=== PATIENT | female | born 1985 | race Caucasian/White ===

== ENCOUNTER → 2017-01-06 | Outpatient (CLI) | payer MEDICAID ==
[2016-10-02 07:09] VITALS: BP 130/65
--- NOTE | 2017-01-06 12:07 | US ---
Examination: Abdominal ultrasound. Clinical History: Right upper quadrant abdominal pain. Technique: Real-time grayscale ultrasound was used to evaluate the upper abdomen. Comparison: None available. Findings: The gallbladder is suboptimally distended with no cholelithiasis, gallbladder wall thickening or per icholecystic fluid noted. The common bile duct measures 4 mm in diameter and is within normal limits. No intrahepatic biliary ductal dilatation is noted. The liver is normal in echogenicity with no focal mass. The pancreas is obscured by bowel gas and is not adequately evaluated. The right kidney measures 10.5 cm in length and is normal in echogenicity with no focal mass, hydron ephrosis or nephrolithiasis noted. Impression: 1. Negative right upper quadrant abdominal ultrasound. Reported By:
== END ==
LOC: RAD 10:17
PROVIDERS: ATTEND Nurse Practitioner Family
DX: R10.11 Right upper quadrant pain (principal); K21.9 Gastro-esophageal reflux disease without esophagitis
CPT/HCPCS: 76705

== ENCOUNTER 2017-01-13 10:51 | Emergency (ER) | payer MEDICAID ==
[2017-01-13 11:03] VITALS: BP 119/83; BMI 28.9
[2017-01-13] MEDS ORDERED: DEMEROL INJ IM ONE (11:03)
--- NOTE | 2017-01-13 11:03 | DR.GENAD ---
HPI - PCP Primary Care Physician: peña - Complaint/Symptoms Chief Complaint Doctors Comments: Patient states that her left ankle is painful to movement. occured just a few minutes prior to arrival when a cabinet fell onto her ankle. Quaity shap, severe, exacerbated by weight bearing. 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 she is having left ankle pain. - Source History Provided: Patient - Mode of Arrival Mode of Arrival: EMS - Timing Onset of Chief Complaint: 01/13/17 PMH - PMH Past Medical History: Yes Past Medical History: Anxiety, Asthma, Depression Past Surgical History: Yes Surgical History: 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 - Family History History of Family Medical Conditions: No - Social History Does patient currently use any type of tobacco product: Yes Have you used tobacco products in the last 12 months: Yes Type of Tobacco Use: Cigarettes How many years tobacco product used: 20 Does any household member use tobacco: Yes Alcohol Use: None Do you use any recreational Drugs:: No Lives With: Family Lives Where: Home - infectious screening In the last 2 months have you had wt loss of >10#?: NO Have you had fever, night sweats or hemotysis?: No Have you traveled outside the country in the last 6 months?: No Isolation: Standard ROS - Review of Systems Constitutional: No Symptoms Reported Eyes: No Symptoms Reported ENTM: No Symptoms Reported Respiratoy: No Symptoms Reported Cardiovascular: No Symptoms Reported Gastrointestinal/Abdominal: No Symptoms Reported Genitourinary: No Symptoms Reported Neurological: No Symptoms Reported Musculoskeletal: Ankle (left ankle pain) Integumentary: No Symptoms Reported Hematologic/Lymphatic: No Symptoms Reported Endocrine: No Symptoms Reported Psychiatric: No Symptoms Reported All Other Systems: Reviewed and Negative PE - Vital Signs Vitals: Temperature 98.6 F Pulse Rate 86 Respiratory Rate 16 Blood Pressure [Right Arm] 130/65 Blood Pressure 119/83 O2 Sat by Pulse Oximetry 100 - General Limitations: No Limitations General Appearance: Alert, In No Apparent Distress - Head Head Exam: Normal Inspection, Atraumatic - Eyes Eye exam: Normal Appearance, PERRL, EOMI - ENT ENT Exam: Normal Exam External Ear Exam: Normal External Inspection TM/Canal Exam: Bilateral Normal Nose Exam: Normal Nose Exam Mouth Exam: Normal Inspection Throat Exam: Normal Inspection - Neck Neck Exam: Normal Inspection - Chest Chest Inspection: Normal Inspection - Respiratory Respiratory Exam: Normal Lung Sounds Bilat Respiratory Exam: Bilateral Clear to Auscultation - Cardiovascular Cardiovascular Exam: Regular Rate, Normal Rhythm - Abdominal Exam Abdominal Exam: Normal Inspection, Normal Bowel Sounds Abdominal Tenderness: negative: RUQ, RLQ, LUQ, LLQ, Epigastrium, Suprapubic, Diffuse, Mild, Moderate, Severe, Other - Extremities Extremities Exam: Tenderness (left ankle), Normal Capillary Refill, Edema ( slight) - Back Back Exam: Normal Inspection - Neurologic Neurological Exam: Alert, Oriented X3, CN II-XII Intact - Psychiatric Psychiatric Exam: Normal Affect, Normal Mood - Skin Skin Exam: Warm, Dry, Intact ROR - XRAY XRAY Interpreted by: Radiologist (ankle,foot: no acute abnormality) - Diagnosis Discharge Problem: Contusion of ankle or foot, left - Discharge Plan Condition: Stable - Follow ups/Referrals Follow ups/Referrals: DONG TIMMONS [Primary Care Provider] - 3 days - Instructions
[2017-01-13] MEDS ORDERED: DEMEROL INJ ONE (11:11)
--- NOTE | 2017-01-13 11:33 | RAD ---
HISTORY: Pain, filing cabinet fell on foot Study: Three views left foot Comparison: None Findings: Normal alignment. No acute fracture or dislocation. The soft tissues are unremarkable. IMPRESSION: 1. No acute osseous abnormality. Reported By:
--- NOTE | 2017-01-13 11:34 | RAD ---
HISTORY: Pain, filing cabinet fell on patient's left foot at work. Study: Three-view left ankle Comparison: No priors Findings: No acute cortical disruption or dislocation can be identified. The ankle mortise remains well align ed. No significant soft tissue swelling or injury can be seen. The visualized portions of the talu s and calcaneus are unremarkable. IMPRESSION: 1. Negative exam. Reported By:
== END 2017-01-13 12:17 | disposition home or self-care (01) ==
LOC: ER 10:51
PROC: 2W3MX1Z Immobilization of Left Lower Extremity using Splint (ICD-10-PCS; principal; 2017-01-13)
DX: S90.02XA Contusion of left ankle, initial encounter (principal); S90.32XA Contusion of left foot, initial encounter; X58.XXXA Exposure to other specified factors, initial encounter; Y92.9 Unspecified place or not applicable
CPT/HCPCS: 29540; 73610; 73630; 96372; 99282; J2175

== ENCOUNTER → 2017-02-11 | Outpatient (CLI) | payer MEDICAID ==
[2017-01-13 11:03] VITALS: BP 119/83
[2017-02-11 19:28] LABS: BASOPHILS % (AUTO) 0.6 % (0.2-1.0); EOSINOPHILS # (AUTO) 0.4 x10^3/uL (0.0-0.2); EOSINOPHILS % (AUTO) 5.2 % (0.9-2.9); HEMATOCRIT 38.3 % (36.0-47.0); HEMOGLOBIN 12.8 g/dL (12.0-16.0); LYMPHOCYTES # (AUTO) 1.8 X10^3/uL (1.3-2.9); LYMPHOCYTES % (AUTO) 24.2 % (21.0-51.0); MEAN CORPUSCULAR HEMOGLOBIN 28.7 pg (27.0-34.0); MEAN CORPUSCULAR HGB CONC 33.5 g/dL (33.0-35.0); MEAN CORPUSCULAR VOLUME 85.8 fL (80.0-100.0); MEAN PLATELET VOLUME 8.5 fL (7.4-11.0); MONOCYTES # (AUTO) 0.6 x10^3/uL (0.3-0.8); MONOCYTES % (AUTO) 7.6 % (0.0-13.0); NEUTROPHILS # (AUTO) 4.8 x10^3/uL (2.2-4.8); NEUTROPHILS % (AUTO) 62.4 % (42.0-75.0); PLATELET COUNT 247 X10^3/uL (150.0-450.0); RED BLOOD COUNT 4.46 X10^6/uL (3.5-5.4); RED CELL DISTRIBUTION WIDTH 13.4 % (11.6-16.5); RETICULOCYTE % 2.17 % (0.8-2.2); WHITE BLOOD COUNT 7.6 X10^3/uL (3.6-10.0)
== END | disposition home or self-care (01) ==
LOC: LAB 18:01
PROVIDERS: ATTEND Nurse Practitioner Family
DX: R53.83 Other fatigue (principal); D64.9 Anemia, unspecified; R42 Dizziness and giddiness; R31.9 Hematuria, unspecified; G44.52 New daily persistent headache (NDPH); R10.31 Right lower quadrant pain; R30.0 Dysuria
CPT/HCPCS: 36415; 82607; 82728; 82746; 84466; 85025; 85045; 87086

== ENCOUNTER 2017-04-01 10:36 | Day surgery (SDC) | payer MEDICAID ==
[2017-04-01] MEDS: D5 LR 1000 ML 1,000 ML IV ONE (11:07)
[2017-04-01] MEDS ORDERED: DIPRIVAN VIAL 20 ML ONE (11:46)
[2017-04-01 12:34] VITALS: BP 107/73
== END 2017-04-01 12:30 | disposition home or self-care (01) ==
LOC: SURG1 10:36
PROVIDERS: ATTEND Internal Medicine
PROC: 0DB38ZX Excision of Lower Esophagus, Via Natural or Artificial Opening Endoscopic, Diagnostic (ICD-10-PCS; principal; 2017-04-01 11:00)
PROC: 0DB68ZX Excision of Stomach, Via Natural or Artificial Opening Endoscopic, Diagnostic (ICD-10-PCS; principal; 2017-04-01 11:00)
PROC: 0DJ08ZZ Inspection of Upper Intestinal Tract, Via Natural or Artificial Opening Endoscopic (ICD-10-PCS; principal; 2017-04-01 11:00)
DX: R10.13 Epigastric pain (principal); K21.9 Gastro-esophageal reflux disease without esophagitis; K44.9 Diaphragmatic hernia without obstruction or gangrene; K20.8 Other esophagitis; K29.60 Other gastritis without bleeding; R11.0 Nausea; R10.31 Right lower quadrant pain; R10.11 Right upper quadrant pain
CPT/HCPCS: A4217; J3490; J7120

== ENCOUNTER 2017-06-18 02:18 | Emergency (ER) | payer MEDICAID ==
[2017-06-18 02:25] VITALS: BP 113/70; BMI 29.2
--- NOTE | 2017-06-18 02:42 | DR.GENAD ---
HPI - Complaint/Symptoms Chief Complaint Doctors Comments: Patient complains of left sided chest pain that radiates to the right side under her ribs for the past two weeks. States the pain is squeezing type of pain with the pain being 10 of 10. states she smokes pack day. Last menstrual period was two months ago. States she has an IUD but they could not feel the string for a while and she is unsure if she is . She denies cold, cough, fever, chills, dysuria or hematuria. 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 she is complaining of epigastric pain. She denies any recent trauma. Chief Complaint:: chest pain and abd pain Self Treatment fo Chief Complaint: pt states that she has chronic chest pain but tonight it has been getting worse. 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 negative: See HPI, Chills, Diaphoresis, Fever, Malaise, Weakness, Irritable, Fatigue, Loss of Appetite, Other Eyes: No Symptoms Reported. negative: See HPI, Eye Pain, Blurred Vision, Tearing, Discharge, Photophobia, Diplopia, Other ENTM: No Symptoms Reported Respiratoy: No Symptoms Reported. negative: See HPI, Productive Cough, Non- Productive Cough, Moist Cough, Dry Cough, Hacking Cough, Barking Cough, Brassy Cough, Orthopnea, Short of Breath, Stridor, Wheezing, Hemoptysis, Other Cardiovascular: No Symptoms Reported, Chest Pain. negative: See HPI, Edema, Palpitations, Syncope, Cyanosis, Skin Mottling, Other Gastrointestinal/Abdominal: No Symptoms Reported, Abdominal Pain. negative: See HPI, Constipation, Diarrhea, Nausea, Vomiting, Food Intolerance, Other Genitourinary: No Symptoms Reported. negative: See HPI, Discharge, Dysuria, Frequency, Hematuria, Pain, Bleeding, Other Neurological: No Symptoms Reported Musculoskeletal: No Symptoms Reported. negative: See HPI, Back Pain, Gout, Joint Pain, Joint Swelling, Muscle Pain, Muscle Stiffness, Neck Pain, Right, Left, Neck, Chest wall, Rib(s), Back, Shoulder, Arm, Elbow, Forearm, Wrist, Hand , Pelvis, Hip, Leg, Knee, Ankle, Foot, Other Integumentary: No Symptoms Reported Hematologic/Lymphatic: No Symptoms Reported Endocrine: No Symptoms Reported Psychiatric: No Symptoms Reported PE - Vital Signs Vitals: Temperature 98.7 F Pulse Rate 97 Respiratory Rate 18 Blood Pressure [Right Arm] 130/65 Blood Pressure 113/70 O2 Sat by Pulse Oximetry 100 - General Limitations: No Limitations General Appearance: Alert, In No Apparent Distress, Obtunded - Head Head Exam: Normal Inspection, Atraumatic, Normocephalic - Eyes Eye exam: Normal Appearance, PERRL, EOMI. negative: Scleral Icterus, Conjunctival Injection, Nystagmus, Miosis, Mydrasis, Periorbital Swelling, Periorbital Tenderness, Other - ENT ENT Exam: Normal Exam, Normal Oropharynx, Normal External Ear Exam, Mucous Membranes Moist, TM's Normal Bilaterally External Ear Exam: Normal External Inspection TM/Canal Exam: Bilateral Normal Nose Exam: Normal Nose Exam, Sinus Tenderness. negative: Nasal Deviation, Crepitus, Septal Hematoma, Laceration, Abrasion, Other Mouth Exam: Normal Inspection, Drooling. negative: Trismus, Lip Swelling, Tongue Elevation, Tongue Swelling, Laceration, Other Throat Exam: Normal Inspection, Tonsillar Erythema, Tonsillomegaly. negative: Tonsillar Exudate, R Peritonsillar Mass, L Peritonsillar Mass, Muffled Voice, Other - Neck Neck Exam: Normal Inspection, Full ROM, Trachea Midline - Chest Chest Inspection: Normal Inspection, Symmetric Chest Wall Rise. negative: Tenderness, Rash, Abscess, Other - Respiratory Respiratory Exam: Normal Lung Sounds Bilat Respiratory Exam: Bilateral Clear to Auscultation, Bilateral Decreased Breath Sounds - Cardiovascular Cardiovascular Exam: Regular Rate, Normal Rhythm, Normal Heart Sounds - Abdominal Exam Abdominal Exam: Normal Inspection, Normal Bowel Sounds, Soft, Tenderness ( epigastric tenderness) Abdominal Tenderness: Epigastrium, Moderate - Extremities Extremities Exam: Normal Inspection, Full ROM, Normal Capillary Refill. negative: Tenderness, Edema, Joint Swelling, Calf Tenderness, Other - Back Back Exam: Normal Inspection, Full ROM. negative: Tenderness, (R) CVA Tenderness, (L) CVA Tenderness, Muscle Spasm, Paraspinal Tenderness, Vertebral Tenderness, Rashes, (R) Sciatic Notch Tenderness, (L) Sciatic Notch Tendern, (R ) Straight Leg Raise, (L) Straight Leg Raise, Other - Neurologic Neurological Exam: Alert, Oriented X3, CN II-XII Intact, Normal Gait, Reflexes Normal - Psychiatric Psychiatric Exam: Normal Affect, Normal Mood. negative: Depressed, Agitated, Anxious, Flat Affect, Manic, Homicidal Ideation, Suicidal Ideation, Other - Skin Skin Exam: Warm, Dry, Intact, Normal Color ROR - Labs Reviewed Laboratory Results Reviewed?: Yes (all labs and x-ray results reviewed and discussed with patient) Result Diagrams: 06/18/17 02:40 06/18/17 02:40 Laboratory: WBC 12.0 X10^3/uL (3.6-10.0) H 06/18/17 02:40 RBC 4.40 X10^6/uL (3.5-5.4) 06/18/17 02:40 Hgb 12.6 g/dL (12.0-16.0) 06/18/17 02:40 Hct 36.0 % (36.0-47.0) 06/18/17 02:40 MCV 81.7 fL (80.0-100.0) 06/18/17 02:40 MCH 28.7 pg (27.0-34.0) 06/18/17 02:40 MCHC 35.2 g/dL (33.0-35.0) H 06/18/17 02:40 RDW 14.5 % (11.6-16.5) 06/18/17 02:40 Plt Count 251 X10^3/uL (150.0-450.0) 06/18/17 02:40 MPV 7.7 fL (7.4-11.0) 06/18/17 02:40 Neut % 59.6 % (42.0-75.0) 06/18/17 02:40 Lymph % 24.5 % (21.0-51.0) 06/18/17 02:40 [place] % 8.6 % (0.0-13.0) 06/18/17 02:40 Eos % 6.4 % (0.9-2.9) H 06/18/17 02:40 Baso % 0.9 % (0.2-1.0) 06/18/17 02:40 Neut # 7.1 x10^3/uL (2.2-4.8) H 06/18/17 02:40 Lymph # 2.9 X10^3/uL (1.3-2.9) 06/18/17 02:40 [place] # 1.0 x10^3/uL (0.3-0.8) H 06/18/17 02:40 Eos # 0.8 x10^3/uL (0.0-0.2) H 06/18/17 02:40 Baso # 0.1 X10^3/uL (0.0-0.1) 06/18/17 02:40 Absolute Nucleated RBC 0.1 /100WBC 06/18/17 02:40 INR Target Range - 06/18/17 02:40 INR 1.01 (0.8-1.3) 06/18/17 02:40 PTT 31.0 SECONDS (22.9-36.5) 06/18/17 02:40 PTT Comment - 06/18/17 02:40 Sodium 138 mmol/L (136-145) 06/18/17 02:40 Corrected Sodium TNP 06/18/17 02:40 Potassium 3.5 mmol/L (3.5-5.1) 06/18/17 02:40 Chloride 101 mmol/L (98-107) 06/18/17 02:40 Carbon Dioxide 28.3 mmol/L (21-32) 06/18/17 02:40 BUN 14 mg/dL (7-18) 06/18/17 02:40 Creatinine 0.93 mg/dL (0.55-1.02) 06/18/17 02:40 Est GFR (MDRD) Af Amer > 60 (>60) 06/18/17 02:40 Est GFR (MDRD) Non-Af > 60 (>60) 06/18/17 02:40 Glucose 104 mg/dL (65-99) H 06/18/17 02:40 Calcium 8.4 mg/dL (8.5-10.1) L 06/18/17 02:40 Corrected Calcium TNP 06/18/17 02:40 Magnesium 1.7 mg/dL (1.7-2.9) 06/18/17 02:40 Total Bilirubin 0.20 mg/dL (0.2-1.0) 06/18/17 02:40 AST 43 Units/L (15-37) H 06/18/17 02:40 ALT 74 Units/L (12-78) 06/18/17 02:40 Alkaline Phosphatase 99 Units/L (46-116) 06/18/17 02:40 Creatine Kinase 97 Units/L (26-192) 06/18/17 02:40 CK-MB (CK-2) < 1.0 ng/mL (0-4.0) 06/18/17 02:40 CK/CKMB % Calc 1.0 % (<4) 06/18/17 02:40 Troponin I < 0.02 ng/mL (0-1.5) 06/18/17 02:40 Total Protein 7.5 g/dL (6.4-8.2) 06/18/17 02:40 Albumin 3.6 g/dL (3.4-5.0) 06/18/17 02:40 Globulin 3.9 g/dL (2.5-4.5) 06/18/17 02:40 Albumin/Globulin Ratio 0.9 Ratio (1.1-2.1) L 06/18/17 02:40 Amylase 41 Units/L (25-115) 06/18/17 02:40 Lipase 164 Units/L (73-393) 06/18/17 02:40 HCG, Qual Cancelled 06/18/17 02:40 HCG, Quant < 1 mIU/mL (0-6) 06/18/17 02:40 H. pylori IgG Antibody Positive (NEGATIVE) A 06/18/17 02:40 - XRAY XRAY Interpreted by: Radiologist (CT abdomen: No acute process identified. IUD in place.) - EKG Rate: 88 [place]: Normal Rhythm: NSR Block: None Hypertrophy: None ST: Nonsp - Diagnosis Discharge Problem: Helicobacter positive gastritis, Amenorrhea Abdominal pain Qualifiers: Abdominal location: generalized Qualified Code(s): R10.84 - Generalized abdominal pain - Discharge Plan Disposition: HOME, SELF-CARE Condition: Stable Prescriptions: Bismuth Subsalicylate [Pepto-Bismol] 524 mg PO QID PRN #120 ml PRN Reason: Metronidazole [Flagyl Tab 250 mg] 250 mg PO TID #42 tab Ranitidine HCl [ZANTAC TAB 150 MG *] 150 mg PO BID #60 tab Tetracycline HCl 500 mg PO TID PRN #42 cap PRN Reason: - Follow ups/Referrals Follow ups/Referrals: DONG TIMMONS [Primary Care Provider] - 3 days - Instructions Instructions: Abdominal Pain, Adult, [id number], Helicobacter Pylori Antibodies Test, Duodenitis
[2017-06-18 02:53] LABS: BASOPHILS # (AUTO) 0.1 X10^3/uL (0.0-0.1); BASOPHILS % (AUTO) 0.9 % (0.2-1.0); EOSINOPHILS # (AUTO) 0.8 x10^3/uL (0.0-0.2); EOSINOPHILS % (AUTO) 6.4 % (0.9-2.9); HEMOGLOBIN 12.6 g/dL (12.0-16.0); LYMPHOCYTES # (AUTO) 2.9 X10^3/uL (1.3-2.9); LYMPHOCYTES % (AUTO) 24.5 % (21.0-51.0); MEAN CORPUSCULAR HEMOGLOBIN 28.7 pg (27.0-34.0); MEAN CORPUSCULAR HGB CONC 35.2 g/dL (33.0-35.0); MEAN CORPUSCULAR VOLUME 81.7 fL (80.0-100.0); MEAN PLATELET VOLUME 7.7 fL (7.4-11.0); MONOCYTES % (AUTO) 8.6 % (0.0-13.0); NEUTROPHILS # (AUTO) 7.1 x10^3/uL (2.2-4.8); NEUTROPHILS % (AUTO) 59.6 % (42.0-75.0); PLATELET COUNT 251 X10^3/uL (150.0-450.0); RED CELL DISTRIBUTION WIDTH 14.5 % (11.6-16.5)
[2017-06-18 03:10] LABS: BLOOD UREA NITROGEN 14 mg/dL (7-18); CALCIUM 8.4 mg/dL (8.5-10.1); CARBON DIOXIDE 28.3 mmol/L (21-32); CHLORIDE 101 mmol/L (98-107); CREATININE 0.93 mg/dL (0.55-1.02); SODIUM 138 mmol/L (136-145); TROPONIN I < 0.02 ng/mL (0-1.5); eGFR BLACK RACES > 60 (>60); eGFR NON BLACK RACES > 60 (>60)
[2017-06-18 03:12] LABS: ALANINE AMINOTRANSFERASE 74 Units/L (12-78); ALBUMIN 3.6 g/dL (3.4-5.0); ALKALINE PHOSPHATASE 99 Units/L (46-116); AMYLASE 41 Units/L (25-115); CREATINE KINASE 97 Units/L (26-192); CREATINE KINASE MB < 1.0 ng/mL (0-4.0); LIPASE 164 Units/L (73-393); MAGNESIUM 1.7 mg/dL (1.7-2.9); TOTAL PROTEIN 7.5 g/dL (6.4-8.2)
[2017-06-18 03:25] LABS: ASPARTATE AMINO TRANSFERASE 43 Units/L (15-37)
--- NOTE | 2017-06-18 04:37 | CT ---
CT abdomen and pelvis without contrast Indication: Abdominal pain and distention for 2 weeks. Comparison: None Technique: CT images of the abdomen and pelvis were obtained without contrast. Automatic exposure con trol was utilized. Findings: The lung bases are clear. No aggressive osseous lesions. Evaluation is limited by lack of contrast. Accounting for this, the liver, gallbladder, spleen, stoma ch, duodenum, pancreas, adrenals, and kidneys are unremarkable. No urinary stones or obstruction. No significant bowel thickening or dilatation. The appendix appears normal. The uterus and ovaries are n oted. Intrauterine device appears grossly normal in position. Tampon present within the vagina. Urina ry bladder and rectum are unremarkable. No significant free fluid or adenopathy. Impression: No acute process identified to explain patient's symptoms, within noncontrast limitations. Reported By:
[2017-06-18] MEDS ORDERED: PROTONIX TAB 40 MG PO ONE ×2 (04:49→05:00)
[2017-06-18] MEDS ORDERED: TYLENOL #3 TAB (W/CODEINE) PO STA (04:49)
[2017-06-18] MEDS ORDERED: TYLENOL #3 TAB (W/CODEINE) PO ONE (05:00)
== END 2017-06-18 05:05 | disposition home or self-care (01) ==
LOC: ER 02:18
DX: R10.84 Generalized abdominal pain (principal); B96.81 Helicobacter pylori [H. pylori] as the cause of diseases classified elsewhere; N91.2 Amenorrhea, unspecified
CPT/HCPCS: 36415; 74176; 80053; 82150; 82550; 82553; 83690; 83735; 84484; 84702; 85025; 85610; 85730; 86677; 93005; 93010; 99283

== ENCOUNTER 2017-07-03 21:51 | Emergency (ER) | payer MEDICAID ==
[2017-07-03 22:05] VITALS: BP 136/87; BMI 31.5
--- NOTE | 2017-07-03 22:10 | DR.GENAD ---
HPI - PCP Primary Care Physician: peña - HPI Comment HPI Comment: PATIENT DEVELOP SUBSTERNAL SHARP CHEST PAIN TONIGHT WHILE TAKING HER SCHEDULE ALBUTEROL NEB TREATMENT. PAIN WAS ASSOCIATED WITH SOB AND FATIGUE. PAIN ALMOST RESOLVE CURRENTLY. - Complaint/Symptoms Chief Complaint Doctors Comments: CHEST. 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 negative: Chills, Fever, Loss of Appetite Eyes: No Symptoms Reported. negative: Eye Pain, Discharge ENTM: No Symptoms Reported. negative: Ear Pain, Nose Discharge, Nose Congestion , Throat Pain Respiratoy: No Symptoms Reported, Non-Productive Cough, Short of Breath, Wheezing. negative: Productive Cough (TIGHTNESS) Cardiovascular: Chest Pain Gastrointestinal/Abdominal: No Symptoms Reported. negative: Abdominal Pain, Diarrhea, Nausea, Vomiting Genitourinary: No Symptoms Reported. negative: Dysuria, Frequency, Hematuria Neurological: No Symptoms Reported, Weakness. negative: Headache, Dizziness Musculoskeletal: Muscle Pain Integumentary: No Symptoms Reported Hematologic/Lymphatic: No Symptoms Reported Endocrine: No Symptoms Reported All Other Systems: Reviewed and Negative PE - Vital Signs Vitals: Temperature 986 F Pulse Rate 106 Respiratory Rate 18 Blood Pressure [Right Arm] 130/65 Blood Pressure 136/87 O2 Sat by Pulse Oximetry 97 - General Limitations: No Limitations General Appearance: Alert - Head Head Exam: Normal Inspection - Eyes Eye exam: Normal Appearance - ENT ENT Exam: Normal External Ear Exam External Ear Exam: Normal External Inspection TM/Canal Exam: Bilateral Normal Nose Exam: Normal Nose Exam Mouth Exam: Normal Inspection Throat Exam: Normal Inspection - Neck Neck Exam: Normal Inspection, Trachea Midline - Chest Chest Inspection: Symmetric Chest Wall Rise - Respiratory Respiratory Exam: Normal Lung Sounds Bilat Respiratory Exam: Bilateral Wheezing, Bilateral Rhonchi, Lower Wheezing, Lower Rhonchi - Cardiovascular Cardiovascular Exam: Regular Rate, Normal Rhythm, Normal Heart Sounds - Abdominal Exam Abdominal Exam: Normal Bowel Sounds, Soft. negative: Tenderness - Extremities Extremities Exam: Normal Inspection - Back Back Exam: Normal Inspection - Neurologic Neurological Exam: Alert, Oriented X3 - Psychiatric Psychiatric Exam: Normal Affect, Normal Mood - Skin Skin Exam: Normal Color MDM - Differential Diagnosis Differential Diagnosis: CHEST PAIN Course - Treatment Treatment: SEE ORDERS. CHEST PAIN SPONTANOUSLY RESOLVE IN ED. - Education/Counseling Education/Counseling: Patient, Family, Education Educated On: Treatment, Diagnosis, Needs for Follow Up ROR - Labs Reviewed Laboratory Results Reviewed?: Yes Result Diagrams: 07/03/17 22:36 07/03/17 22:36 Laboratory: WBC 8.4 X10^3/uL (3.6-10.0) 07/03/17 22:36 RBC 4.44 X10^6/uL (3.5-5.4) 07/03/17 22:36 Hgb 12.6 g/dL (12.0-16.0) 07/03/17 22:36 Hct 36.2 % (36.0-47.0) 07/03/17 22:36 MCV 81.4 fL (80.0-100.0) 07/03/17 22:36 MCH 28.3 pg (27.0-34.0) 07/03/17 22:36 MCHC 34.8 g/dL (33.0-35.0) 07/03/17 22:36 RDW 14.4 % (11.6-16.5) 07/03/17 22:36 Plt Count 174 X10^3/uL (150.0-450.0) 07/03/17 22:36 MPV 8.1 fL (7.4-11.0) 07/03/17 22:36 Neut % 63.5 % (42.0-75.0) 07/03/17 22:36 Lymph % 23.4 % (21.0-51.0) 07/03/17 22:36 [place] % 8.8 % (0.0-13.0) 07/03/17 22:36 Eos % 3.5 % (0.9-2.9) H 07/03/17 22:36 Baso % 0.8 % (0.2-1.0) 07/03/17 22:36 Neut # 5.3 x10^3/uL (2.2-4.8) H 07/03/17 22:36 Lymph # 2.0 X10^3/uL (1.3-2.9) 07/03/17 22:36 [place] # 0.7 x10^3/uL (0.3-0.8) 07/03/17 22:36 Eos # 0.3 x10^3/uL (0.0-0.2) H 07/03/17 22:36 Baso # 0.1 X10^3/uL (0.0-0.1) 07/03/17 22:36 Absolute Nucleated RBC 0.0 /100WBC 07/03/17 22:36 Sodium 143 mmol/L (136-145) 07/03/17 22:36 Corrected Sodium 143 mmol/L (136-145) 07/03/17 22:36 Potassium 3.9 mmol/L (3.5-5.1) 07/03/17 22:36 Chloride 105 mmol/L (98-107) 07/03/17 22:36 Carbon Dioxide 29.3 mmol/L (21-32) 07/03/17 22:36 BUN 12 mg/dL (7-18) 07/03/17 22:36 Creatinine 0.88 mg/dL (0.55-1.02) 07/03/17 22:36 Est GFR (MDRD) Af Amer > 60 (>60) 07/03/17 22:36 Est GFR (MDRD) Non-Af > 60 (>60) 07/03/17 22:36 Glucose 113 mg/dL (65-99) H 07/03/17 22:36 Calcium 8.9 mg/dL (8.5-10.1) 07/03/17 22:36 Corrected Calcium TNP 07/03/17 22:36 Total Bilirubin 0.30 mg/dL (0.2-1.0) 07/03/17 22:36 AST 30 Units/L (15-37) 07/03/17 22:36 ALT 53 Units/L (12-78) 07/03/17 22:36 Alkaline Phosphatase 92 Units/L (46-116) 07/03/17 22:36 Creatine Kinase 75 Units/L (26-192) 07/03/17 22:36 CK-MB (CK-2) < 1.0 ng/mL (0-4.0) 07/03/17 22:36 CK/CKMB % Calc 1.3 % (<4) 07/03/17 22:36 Troponin I < 0.02 ng/mL (0-1.5) 07/03/17 22:36 Total Protein 7.1 g/dL (6.4-8.2) 07/03/17 22:36 Albumin 3.4 g/dL (3.4-5.0) 07/03/17 22:36 Globulin 3.7 g/dL (2.5-4.5) 07/03/17 22:36 Albumin/Globulin Ratio 0.9 Ratio (1.1-2.1) L 07/03/17 22:36 - XRAY XRAY Interpreted by: Radiologist XRAY Findings: REPORT DISCUSS WITH PATIENT. - EKG Rhythm: NSR (EKG NOTED) - Diagnosis Discharge Problem: Chest pain Qualifiers: Chest pain type: intercostal pain Qualified Code(s): R07.82 - Intercostal pain - Discharge Plan Disposition: 01 HOME, SELF-CARE Condition: Stable - Follow ups/Referrals Follow ups/Referrals: DONG TIMMONS [Primary Care Provider] - 2 days - Instructions Instructions: Chest Pain Observation Additional Instructions: RETURN TO ED IF WORSE.
--- NOTE | 2017-07-03 22:48 | RAD ---
HISTORY: Pain Study: portable chest Comparison: 10/01/2016 Findings: The left ventricles mildly enlarged. The pulmonary vessels are normal. No consolidation or effusion i s seen. IMPRESSION: Stable chest with no acute abnormality seen. Reported By:
[2017-07-03 22:50] LABS: BASOPHILS # (AUTO) 0.1 X10^3/uL (0.0-0.1); BASOPHILS % (AUTO) 0.8 % (0.2-1.0); EOSINOPHILS # (AUTO) 0.3 x10^3/uL (0.0-0.2); EOSINOPHILS % (AUTO) 3.5 % (0.9-2.9); HEMATOCRIT 36.2 % (36.0-47.0); HEMOGLOBIN 12.6 g/dL (12.0-16.0); LYMPHOCYTES % (AUTO) 23.4 % (21.0-51.0); MEAN CORPUSCULAR HEMOGLOBIN 28.3 pg (27.0-34.0); MEAN CORPUSCULAR HGB CONC 34.8 g/dL (33.0-35.0); MEAN CORPUSCULAR VOLUME 81.4 fL (80.0-100.0); MEAN PLATELET VOLUME 8.1 fL (7.4-11.0); MONOCYTES # (AUTO) 0.7 x10^3/uL (0.3-0.8); MONOCYTES % (AUTO) 8.8 % (0.0-13.0); NEUTROPHILS # (AUTO) 5.3 x10^3/uL (2.2-4.8); NEUTROPHILS % (AUTO) 63.5 % (42.0-75.0); PLATELET COUNT 174 X10^3/uL (150.0-450.0); RED BLOOD COUNT 4.44 X10^6/uL (3.5-5.4); RED CELL DISTRIBUTION WIDTH 14.4 % (11.6-16.5); WHITE BLOOD COUNT 8.4 X10^3/uL (3.6-10.0)
[2017-07-03 23:02] LABS: BLOOD UREA NITROGEN 12 mg/dL (7-18); CALCIUM 8.9 mg/dL (8.5-10.1); CARBON DIOXIDE 29.3 mmol/L (21-32); CHLORIDE 105 mmol/L (98-107); COR NA(FOR HYPERGLY) 143 mmol/L (136-145); CREATININE 0.88 mg/dL (0.55-1.02); SODIUM 143 mmol/L (136-145); TROPONIN I < 0.02 ng/mL (0-1.5); eGFR BLACK RACES > 60 (>60); eGFR NON BLACK RACES > 60 (>60)
[2017-07-03 23:06] LABS: ALANINE AMINOTRANSFERASE 53 Units/L (12-78); ALBUMIN 3.4 g/dL (3.4-5.0); ALKALINE PHOSPHATASE 92 Units/L (46-116); ASPARTATE AMINO TRANSFERASE 30 Units/L (15-37); CKMB % 1.3 % (<4); CREATINE KINASE 75 Units/L (26-192); CREATINE KINASE MB < 1.0 ng/mL (0-4.0); TOTAL PROTEIN 7.1 g/dL (6.4-8.2)
== END 2017-07-03 23:22 | disposition home or self-care (01) ==
LOC: ER 21:51
DX: R07.82 Intercostal pain (principal)
CPT/HCPCS: 36415; 71010; 80053; 82550; 82553; 84484; 85025; 93005; 93010; 99282; 99283

== ENCOUNTER 2017-08-06 21:45 | Emergency (ER) | payer MEDICAID ==
[2017-08-06 21:49] VITALS: BP 109/70; BMI 30.8
--- NOTE | 2017-08-07 00:05 | DR.GENAD ---
HPI - PCP Primary Care Physician: Veronique BARBER - HPI Comment HPI Comment: WORSE TODAY. - Complaint/Symptoms Chief Complaint Doctors Comments: COUGH, COLD CONGESTION TIME ONE DAY. 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 negative: Ear Pain Respiratoy: Productive Cough Cardiovascular: No Symptoms Reported Gastrointestinal/Abdominal: No Symptoms Reported Genitourinary: No Symptoms Reported Neurological: Headache, Dizziness Musculoskeletal: No Symptoms Reported Integumentary: No Symptoms Reported Hematologic/Lymphatic: No Symptoms Reported All Other Systems: Reviewed and Negative PE - Vital Signs Vitals: Temperature 98.3 F Pulse Rate 120 Respiratory Rate 16 Blood Pressure [Right Arm] 130/65 Blood Pressure 109/70 O2 Sat by Pulse Oximetry 97 - General Limitations: No Limitations General Appearance: Alert - Head Head Exam: Normal Inspection - Eyes Eye exam: Normal Appearance - ENT ENT Exam: Normal External Ear Exam. negative: Normal Oropharynx (RED THROAT) External Ear Exam: Normal External Inspection TM/Canal Exam: Bilateral Bulging Nose Exam: Normal Nose Exam Mouth Exam: Normal Inspection Throat Exam: Tonsillar Erythema - Neck Neck Exam: Normal Inspection - Chest Chest Inspection: Normal Inspection - Respiratory Respiratory Exam: Normal Lung Sounds Bilat Respiratory Exam: Bilateral Rhonchi, Lower Rhonchi - Cardiovascular Cardiovascular Exam: Regular Rate, Normal Rhythm, Normal Heart Sounds - Abdominal Exam Abdominal Exam: Normal Bowel Sounds, Soft - Extremities Extremities Exam: Normal Inspection - Back Back Exam: Normal Inspection - Neurologic Neurological Exam: Alert - Psychiatric Psychiatric Exam: Normal Affect MDM - Differential Diagnosis Differential Diagnosis: BRONCHITIS, SINUSITIS Course - Treatment Treatment: SEE ORDERS - Education/Counseling Education/Counseling: Patient, Education Educated On: Diagnosis, Needs for Follow Up - Diagnosis Discharge Problem: Bronchitis Sinusitis Qualifiers: Sinusitis location: unspecified location Chronicity: acute Recurrence: not specified as recurrent Qualified Code(s): J01.90 - Acute sinusitis, unspecified - Discharge Plan Disposition: HOME, SELF-CARE Condition: Stable Prescriptions: Azithromycin [ZITHROMAX Tab 250 mg *] 1 dose PO DAILY #6 tab Benzonatate [TESSALON PERLES *] 200 mg PO TID PRN #10 cap PRN Reason: Cough Cetirizine HCl [Zyrtec Tab 10 mg] 10 mg PO DAILY #10 tab - Follow ups/Referrals Follow ups/Referrals: CONNIE BARBER [Primary Care Provider] - 3 days - Instructions Instructions: Sinusitis, Adult, [id number], Acute Bronchitis, Kwgw-[id number] Additional Instructions: RETURN TO ED IF WORSE.
[2017-08-07] MEDS ORDERED: ZITHROMAX TAB 250 MG PO ONE ×2 (00:08→00:12)
[2017-08-07] MEDS ORDERED: ZyrTEC TAB 10 MG PO ONE (00:10)
[2017-08-07] MEDS ORDERED: TESSALON PERLES PO ONE (00:10)
[2017-08-07] MEDS ORDERED: ZyrTEC TAB 10 MG ONE (00:12)
[2017-08-07] MEDS ORDERED: ROBITUSSIN DM PO ONE (00:13)
[2017-08-07] MEDS ORDERED: ROBITUSSIN DM ONE (00:15)
== END 2017-08-07 00:16 | disposition home or self-care (01) ==
LOC: ER 21:45
DX: J40 Bronchitis, not specified as acute or chronic (principal); J01.80 Other acute sinusitis; Z72.0 Tobacco use
CPT/HCPCS: 99282; Q0144

== ENCOUNTER 2017-08-12 17:55 | Emergency (ER) | payer MEDICAID ==
[2017-08-12 18:00] VITALS: BMI 30.4
--- NOTE | 2017-08-12 18:53 | DR.EXTPAIN ---
HPI - Time seen Time seen: 18:50 - PCP Primary Care Physician: CINTHYA BOLANOS - HPI Comment HPI Comment: FELL ONE WEEK AGO AND IS NOW HAVING INCREASING PAIN. ABSCESS WAS SLIGHTLY DRAINING TODAY, NO FEVER. - Complaint/Symptoms Chief Complaint Doctor Comments: ABSCESS RT ABDOMINAL WALL AND PAIN RT LEG. Chief Complaint:: PT. C/O PAIN TO RIGHT LEG THAT IS FROM THE KNEE DOWN TO THE FOOT. PT. STATES SHE FELL ABOUT A WEEK AGO DOWN SOME STAIRS. PT. ALSO C/O ABSCESS TO LEFT SIDE OF ABDOMEN WHICH HAS BEEN THERE A FEW DAYS. 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 - Family History History of Family Medical Conditions: Yes Family Medical History: Diabetes Mellitus, Cancer, [place], Hypertension - Social History Does patient currently use any type of tobacco product: Yes Have you used tobacco products in the last 12 months: Yes Type of Tobacco Use: Cigarettes Does any household member use tobacco: No Alcohol Use: Occasionally Do you use any recreational Drugs:: No Lives With: Spouse Lives Where: Home - infectious screening In the last 2 months have you had wt loss of >10#?: NO Have you had fever, night sweats or hemotysis?: No Have you traveled outside the country in the last 6 months?: No Isolation: Standard ROS - Review of Systems Constitutional: No Symptoms Reported. negative: Fever Eyes: No Symptoms Reported ENTM: No Symptoms Reported Respiratoy: No Symptoms Reported Cardiovascular: No Symptoms Reported Gastrointestinal/Abdominal: No Symptoms Reported Genitourinary: No Symptoms Reported Neurological: No Symptoms Reported Musculoskeletal: No Symptoms Reported, Right, Leg Integumentary: Other (bscess lt abdominal wall.) Hematologic/Lymphatic: No Symptoms Reported Endocrine: No Symptoms Reported All Other Systems: Reviewed and Negative PE - Vital Signs Vitals: Temperature 98.1 F Pulse Rate [Left Radial] 100 Pulse Rate 110 Respiratory Rate 18 Blood Pressure [Right Arm] 112/72 Blood Pressure 115/75 O2 Sat by Pulse Oximetry 100 - General Limitations: No Limitations General Appearance: Alert - Head Head Exam: Normal Inspection - Eyes Eye exam: Normal Appearance - ENT ENT Exam: Normal External Ear Exam - Neck Neck Exam: Trachea Midline - Chest Chest Inspection: Symmetric Chest Wall Rise - Respiratory Respiratory Exam: Normal Lung Sounds Bilat Respiratory Exam: Bilateral Clear to Auscultation - Cardiovascular Cardiovascular Exam: Regular Rate, Normal Rhythm, Normal Heart Sounds - Abdominal Exam Abdominal Exam: Normal Bowel Sounds, Soft. negative: Tenderness - Extremities Extremities Exam: Tenderness - Lower Extremities Neurovascular/Tendon Exam: Normal Capillary Refill Gait Exam: Observed & Limited by Pain - Back Back Exam: Normal Inspection - Neurological Neurological Exam: Alert, Oriented X3 - Psychiatric Psychiatric Exam: Normal Affect, Normal Mood - Skin Skin Exam: Erythema, Other (ABSCESS LT ABDOMINAL WALL. NO DRAINAGE.) MDM - Differential Diagnosis Differential Diagnosis: Contusion, Fracture, Sprain (ABSCESS, CELLULITIS) Course - Treatment Treatment: SEE ORDERS. - Education/Counseling Education/Counseling: Patient, Education Educated On: Treatment, Diagnosis, Needs for Follow Up ROR - Labs Reviewed Laboratory: 08/12/17 19:26 Abdomen Wound Culture - Final - XRAY XRAY Interpreted by: Radiologist XRAY Findings: REPORT DISCUSS WITH PATIENT. - Diagnosis Discharge Problem: Abscess Cellulitis Qualifiers: Site of cellulitis: unspecified site Qualified Code(s): L03.90 - Cellulitis, unspecified Contusion Qualifiers: Encounter type: initial encounter Contusion area: lower leg Laterality: right Qualified Code(s): S80.11XA - Contusion of right lower leg, initial encounter - Discharge Plan Disposition: 01 HOME, SELF-CARE Condition: Stable Prescriptions: Ibuprofen [MOTRIN TAB 800 MG *] 800 mg PO DAILY PRN #20 tab PRN Reason: Pain/Inflammation Sulfamethoxazole-Trimethoprim [BACTRIM DS TAB 800/160 MG *] 1 tab PO BID #20 tab - Follow ups/Referrals Follow ups/Referrals: CONNIE BARBER [Primary Care Provider] - 3 days - Instructions Instructions: Abscess, [id number], Cellulitis, Adult, [id number], Musculoskeletal Pain Additional Instructions: RETURN TO ED IF WORSE.
[2017-08-12] MEDS ORDERED: BACTRIM DS TAB PO ONE ×2 (18:55→19:04)
[2017-08-12] MEDS ORDERED: MOTRIN TAB 800 MG PO ONE ×2 (18:56→19:04)
[2017-08-12 19:58] VITALS: BP 112/72
--- NOTE | 2017-08-12 20:30 | RAD ---
Two views of the right foreleg Indication: Trauma with for leg pain. Conclusion: The right foreleg shows no fracture, malalignment or radiopaque foreign bodies. Reported By:
== END 2017-08-12 19:52 | disposition home or self-care (01) ==
LOC: ER 17:59
DX: L02.211 Cutaneous abscess of abdominal wall (principal); L03.90 Cellulitis, unspecified; S80.11XA Contusion of right lower leg, initial encounter; W19.XXXA Unspecified fall, initial encounter; Y92.9 Unspecified place or not applicable
CPT/HCPCS: 73590; 87070; 87075; 87205; 99282; 99283

== ENCOUNTER 2017-08-29 18:27 | Emergency (ER) | payer MEDICAID ==
[2017-08-29 18:32] VITALS: BMI 30.4
[2017-08-29 21:12] LABS: BILIRUBIN,URINE NEGATIVE (NEGATIVE); BLOOD/HEMOGLOBIN,URINE NEGATIVE (NEGATIVE); GLUCOSE, URINE NEGATIVE (NEGATIVE); LEUKOCYTE ESTERASE ,URINE NEGATIVE (NEGATIVE); NITRITES,URINE NEGATIVE (NEGATIVE); PROTEIN,URINE NEGATIVE (NEGATIVE); UROBILINOGEN,URINE NORMAL (NORMAL)
[2017-08-29 21:23] LABS: APPEARANCE,URINE CLEAR (CLEAR); BACTERIA,URINE NEGATIVE /HPF (NEGATIVE); COLOR,URINE YELLOW (YELLOW); RBC,URINE NONE SEEN /HPF (NEGATIVE); SQUAMOUS EPITHELIAL CELL,UR FEW /HPF (NEGATIVE)
[2017-08-29] MEDS ORDERED: MORPHINE SULFATE INJ 4 MG IM ONE (21:28)
[2017-08-29] MEDS ORDERED: ZOFRAN INJ 4 MG VIAL IM ONE (21:28)
--- NOTE | 2017-08-29 21:29 | DR.GENAD ---
HPI - PCP Primary Care Physician: CINTHYA BOLANOS - HPI Comment HPI Comment: HOME MEDS DID NOT HELP. - Complaint/Symptoms Chief Complaint Doctors Comments: PAIN RT LEG PAIN GOING INTO LEGS. CHEST PAIN ALSO. CHONIC SYMTOMS WORSE TODAY. Chief Complaint:: PT. C/O CHEST PAIN, RIGHT LEG PAIN THAT RADIATES UP TO BACK AND UP TO NECK. PT. DEALS WITH CHRONIC PAIN BUT STATES THIS PAIN IS WORSE. 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 Past Surgical History Comment: TUBAL LIGATION - Family History History of Family Medical Conditions: Yes Family Medical History: Diabetes Mellitus, Cancer, [place], Hypertension - Social History Does patient currently use any type of tobacco product: Yes Have you used tobacco products in the last 12 months: Yes Type of Tobacco Use: Cigarettes Does any household member use tobacco: Yes Alcohol Use: None Do you use any recreational Drugs:: No Lives With: Significant Other Lives Where: Home - infectious screening In the last 2 months have you had wt loss of >10#?: NO Have you had fever, night sweats or hemotysis?: No Have you traveled outside the country in the last 6 months?: No Isolation: Standard ROS - Review of Systems Constitutional: No Symptoms Reported Eyes: No Symptoms Reported ENTM: No Symptoms Reported Respiratoy: No Symptoms Reported Cardiovascular: Chest Pain Gastrointestinal/Abdominal: No Symptoms Reported Genitourinary: No Symptoms Reported Neurological: No Symptoms Reported Musculoskeletal: Back Pain, Back, Leg Integumentary: No Symptoms Reported Hematologic/Lymphatic: No Symptoms Reported Endocrine: No Symptoms Reported All Other Systems: Reviewed and Negative PE - Vital Signs Vitals: Temperature 98.0 F Pulse Rate [Left Radial] 78 Pulse Rate 95 Respiratory Rate 20 Blood Pressure [Right Arm] 138/87 Blood Pressure 132/80 O2 Sat by Pulse Oximetry 97 - General Limitations: No Limitations General Appearance: Alert - Head Head Exam: Normal Inspection - Eyes Eye exam: Normal Appearance - ENT ENT Exam: Normal External Ear Exam External Ear Exam: Normal External Inspection TM/Canal Exam: Bilateral Normal Nose Exam: Normal Nose Exam Mouth Exam: Normal Inspection Throat Exam: Normal Inspection - Neck Neck Exam: Normal Inspection - Chest Chest Inspection: Symmetric Chest Wall Rise - Respiratory Respiratory Exam: Normal Lung Sounds Bilat Respiratory Exam: Bilateral Clear to Auscultation - Cardiovascular Cardiovascular Exam: Regular Rate, Normal Rhythm, Normal Heart Sounds - Abdominal Exam Abdominal Exam: Normal Bowel Sounds, Soft. negative: Tenderness - Extremities Extremities Exam: Normal Inspection - Back Back Exam: Paraspinal Tenderness, Vertebral Tenderness - Neurologic Neurological Exam: Alert, Oriented X3 - Psychiatric Psychiatric Exam: Normal Affect, Normal Mood - Skin Skin Exam: Normal Color MDM - Additional Information Additional Information Obtained From: Family - Differential Diagnosis Differential Diagnosis: CHEST PAIN, LOW BACK PAIN, SCIATICA Course - Treatment Treatment: SEE ORDERS. IM MED FOR PAIN IN ED. - Reevaluation 1st: Improved - Education/Counseling Education/Counseling: Patient, Family, Education Educated On: Treatment, Diagnosis, Needs for Follow Up ROR - Labs Reviewed Laboratory: Specimen Type Clean catch urine 08/29/17 20:17 Urine Color Yellow (YELLOW) 08/29/17 20:17 Urine Appearance Clear (CLEAR) 08/29/17 20:17 Urine pH 7.0 (5.0 - 8.0) 08/29/17 20:17 Ur Specific [place] 1.010 (1.000-1.030) 08/29/17 20:17 Urine Protein Negative (NEGATIVE) 08/29/17 20:17 Urine Glucose (UA) Negative (NEGATIVE) 08/29/17 20:17 Urine Ketones Negative (NEGATIVE) 08/29/17 20:17 Urine Occult Blood Negative (NEGATIVE) 08/29/17 20:17 Urine Nitrite Negative (NEGATIVE) 08/29/17 20:17 Urine Bilirubin Negative (NEGATIVE) 08/29/17 20:17 Urine Urobilinogen Normal (NORMAL) 08/29/17 20:17 Ur Leukocyte Esterase Negative (NEGATIVE) 08/29/17 20:17 Urine RBC None seen /HPF (NEGATIVE) 08/29/17 20:17 Urine WBC Rare /HPF (NEGATIVE) 08/29/17 20:17 Ur Squamous Epith Cells Few /HPF (NEGATIVE) 08/29/17 20:17 Urine Bacteria Negative /HPF (NEGATIVE) 08/29/17 20:17 Ur Culture Indicated? No/not indicated 08/29/17 20:17 Urine Opiates Screen Negative (NEG=<300) 08/29/17 20:17 Urine Methadone Screen Negative (NEG=<300) 08/29/17 20:17 Ur Barbiturates Screen Negative (NEG=<200) 08/29/17 20:17 Ur Phencyclidine Scrn Negative (NEG=<25) 08/29/17 20:17 Ur Amphetamines Screen Negative (NEG=<1000) 08/29/17 20:17 U Benzodiazepines Scrn Negative (NEG=<200) 08/29/17 20:17 Urine Cocaine Screen Negative (NEG=<300) 08/29/17 20:17 U Marijuana (THC) Screen Negative (NEG=<50) 08/29/17 20:17 - Diagnosis Discharge Problem: Low back pain Qualifiers: Chronicity: acute Back pain laterality: right Sciatica presence: with sciatica Sciatica laterality: sciatica of right side Qualified Code(s): M54.41 - Lumbago with sciatica, right side Sciatica Qualifiers: Laterality: left Qualified Code(s): M54.32 - Sciatica, left side Chest pain Qualifiers: Chest pain type: intercostal pain Qualified Code(s): R07.82 - Intercostal pain - Discharge Plan Disposition: 01 HOME, SELF-CARE Condition: Stable - Follow ups/Referrals Follow ups/Referrals: CONNIE BARBER [Primary Care Provider] - 3 days - Instructions Instructions: Musculoskeletal Pain, Back Pain, Adult, [id number] Additional Instructions: RETURN TO ED IF WORSE.
[2017-08-29] MEDS ORDERED: MORPHINE SULFATE INJ 4 MG ONE (21:30)
[2017-08-29] MEDS ORDERED: ZOFRAN INJ 4 MG VIAL ONE (21:30)
[2017-08-29 21:31] LABS: KETONES,URINE NEGATIVE (NEGATIVE)
[2017-08-29 22:05] VITALS: BP 138/87
== END 2017-08-29 22:00 | disposition home or self-care (01) ==
LOC: ER 18:35
DX: R07.82 Intercostal pain (principal); M54.32 Sciatica, left side; M54.41 Lumbago with sciatica, right side
CPT/HCPCS: 80307; 81001; 93005; 93010; 96372; 99282; 99284; G0434; J2270; J2405

== ENCOUNTER 2017-09-17 23:29 | Emergency (ER) | payer MEDICAID ==
[2017-09-17 23:52] VITALS: BMI 32.0
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
[2017-09-18 01:05] LABS: BASOPHILS # (AUTO) 0.1 X10^3/uL (0.0-0.1); BASOPHILS % (AUTO) 0.8 % (0.2-1.0); EOSINOPHILS # (AUTO) 0.4 x10^3/uL (0.0-0.2); EOSINOPHILS % (AUTO) 4.5 % (0.9-2.9); HEMATOCRIT 36.1 % (36.0-47.0); HEMOGLOBIN 12.4 g/dL (12.0-16.0); LYMPHOCYTES # (AUTO) 2.5 X10^3/uL (1.3-2.9); LYMPHOCYTES % (AUTO) 28.5 % (21.0-51.0); MEAN CORPUSCULAR HEMOGLOBIN 28.6 pg (27.0-34.0); MEAN CORPUSCULAR HGB CONC 34.2 g/dL (33.0-35.0); MEAN CORPUSCULAR VOLUME 83.7 fL (80.0-100.0); MEAN PLATELET VOLUME 8.1 fL (7.4-11.0); MONOCYTES # (AUTO) 0.8 x10^3/uL (0.3-0.8); MONOCYTES % (AUTO) 9.2 % (0.0-13.0); NEUTROPHILS # (AUTO) 5.1 x10^3/uL (2.2-4.8); PLATELET COUNT 263 X10^3/uL (150.0-450.0); RED BLOOD COUNT 4.32 X10^6/uL (3.5-5.4); RED CELL DISTRIBUTION WIDTH 14.9 % (11.6-16.5); WHITE BLOOD COUNT 8.9 X10^3/uL (3.6-10.0)
[2017-09-18 01:06] LABS: BILIRUBIN,URINE NEGATIVE (NEGATIVE); BLOOD/HEMOGLOBIN,URINE 1+ (NEGATIVE); GLUCOSE, URINE NEGATIVE (NEGATIVE); KETONES,URINE 1+ (NEGATIVE); LEUKOCYTE ESTERASE ,URINE 1+ (NEGATIVE); NITRITES,URINE NEGATIVE (NEGATIVE); PROTEIN,URINE 1+ (NEGATIVE); UROBILINOGEN,URINE 1+ (NORMAL)
[2017-09-18 01:13] LABS: ALANINE AMINOTRANSFERASE 63 Units/L (12-78); ALBUMIN 3.4 g/dL (3.4-5.0); ALKALINE PHOSPHATASE 91 Units/L (46-116); AMYLASE 36 Units/L (25-115); ASPARTATE AMINO TRANSFERASE 38 Units/L (15-37); BLOOD UREA NITROGEN 13 mg/dL (7-18); CALCIUM 8.5 mg/dL (8.5-10.1); CHLORIDE 105 mmol/L (98-107); CREATININE 0.76 mg/dL (0.55-1.02); LIPASE 153 Units/L (73-393); SODIUM 141 mmol/L (136-145); TOTAL PROTEIN 7.3 g/dL (6.4-8.2); eGFR BLACK RACES > 60 (>60); eGFR NON BLACK RACES > 60 (>60)
[2017-09-18 01:13] LABS: APPEARANCE,URINE CLEAR (CLEAR); BACTERIA,URINE TRACE /HPF (NEGATIVE); CALCIUM OXALATE CRYSTALS,UR MODERATE /HPF (NEGATIVE); COLOR,URINE YELLOW (YELLOW); MUCUS,URINE MANY /HPF (NEGATIVE); RBC,URINE RARE /HPF (NEGATIVE); SQUAMOUS EPITHELIAL CELL,UR FEW /HPF (NEGATIVE)
--- NOTE | 2017-09-18 01:54 | CT ---
CT abdomen and pelvis without contrast Indication: Abdominal pain and distention. Comparison: 06/18/2017 CT Technique: Helical images through the abdomen and pelvis without contrast. Coronal and sagittal refor mats provided. Findings: Limited images through the lower chest shows no acute abnormality. Review of bone windows s hows no osseous lesion. Abdomen: Within the limits of a noncontrast study, the liver, gallbladder, spleen, adrenal glands, pa ncreas, stomach and small bowel are normal. No acute colonic abnormalities seen. Appendix is normal. Vasculature is normal. The kidneys are normal without hydroureteronephrosis. Pelvis: The urinary bladder is normal. The rectum is normal. IUD seen within the uterus. No adnexal r egion lesions seen. Impression: No acute abnormality to explain the patient's symptoms. Reported By:
[2017-09-18 02:32] VITALS: BP 106/65
== END 2017-09-18 02:32 | disposition home or self-care (01) ==
LOC: ER 23:29
DX: N93.9 Abnormal uterine and vaginal bleeding, unspecified (principal); R10.31 Right lower quadrant pain; N92.6 Irregular menstruation, unspecified
CPT/HCPCS: 36415; 74176; 80053; 81001; 82150; 83690; 84702; 85025; 99282; 99283

== ENCOUNTER 2017-10-15 18:54 | Emergency (ER) | payer MEDICAID ==
[2017-10-15 19:05] VITALS: BP 119/79; BMI 28.9
[2017-10-15 21:26] LABS: BILIRUBIN,URINE NEGATIVE (NEGATIVE); BLOOD/HEMOGLOBIN,URINE 3+ (NEGATIVE); GLUCOSE, URINE NEGATIVE (NEGATIVE); KETONES,URINE NEGATIVE (NEGATIVE); LEUKOCYTE ESTERASE ,URINE 1+ (NEGATIVE); NITRITES,URINE POSITIVE (NEGATIVE); PROTEIN,URINE 1+ (NEGATIVE); UROBILINOGEN,URINE 1+ (NORMAL)
[2017-10-15 21:34] LABS: APPEARANCE,URINE SLIGHTLY HAZY (CLEAR); BACTERIA,URINE 2+ /HPF (NEGATIVE); COLOR,URINE AMBER (YELLOW); MUCUS,URINE MODERATE /HPF (NEGATIVE); RBC,URINE RARE /HPF (NEGATIVE); SQUAMOUS EPITHELIAL CELL,UR MODERATE /HPF (NEGATIVE)
[2017-10-15] MEDS ORDERED: DULCOLAX TAB EC 5 MG PO ONE (21:34)
[2017-10-15] MEDS ORDERED: NORCO 7.5/325 MG TAB PO ONE (21:36)
[2017-10-15] MEDS ORDERED: CHRONULAC ONE (21:41)
[2017-10-15] MEDS ORDERED: LEVAQUIN TAB 500 MG ONE (21:41)
[2017-10-15] MEDS ORDERED: NORCO 7.5/325 MG TAB ONE (21:41)
--- NOTE | 2017-10-15 21:42 | DR.GENAD ---
HPI - PCP Primary Care Physician: SHANELLE - Complaint/Symptoms Chief Complaint Doctors Comments: Patient is complaining of a sore throat, nausea, vomiting with red nasal congestion and epigastric pain. states she has irritable bowel syndrome and has been taking her medicine for her stomach. States she has not had a period in four months and has an IUD. She is having problems with constipation. She smokes 1/2 pack cigarettes daily. She denies hematuria, nocturia but has frequency. States she is a patient of Dr. Miguel but usually sees Mary Haddad. States her appetite has been decreased and her last bowel movement was about four days ago. She is requesting something for abdominal pain and states the only thing that works with her pain is morphine. 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 negative: See HPI, Chills, Diaphoresis, Fever, Malaise, Weakness, Irritable, Fatigue, Other Eyes: negative: No Symptoms Reported, See HPI, Eye Pain, Blurred Vision, Tearing , Discharge, Photophobia, Diplopia, Other ENTM: No Symptoms Reported, Nose Discharge, Nose Congestion, Mouth Pain, Throat Pain Respiratoy: No Symptoms Reported, Non-Productive Cough. negative: See HPI, Productive Cough, Moist Cough, Dry Cough, Hacking Cough, Barking Cough, Brassy Cough, Orthopnea, Short of Breath, Stridor, Wheezing, Hemoptysis, Other Cardiovascular: No Symptoms Reported. negative: See HPI, Chest Pain, Edema, Palpitations, Syncope, Cyanosis, Skin Mottling, Other Gastrointestinal/Abdominal: No Symptoms Reported, Abdominal Pain, Constipation, Nausea, Vomiting Genitourinary: No Symptoms Reported, Frequency. negative: See HPI, Discharge, Dysuria, Hematuria, Pain, Bleeding, Other Neurological: No Symptoms Reported Musculoskeletal: No Symptoms Reported Integumentary: No Symptoms Reported Hematologic/Lymphatic: No Symptoms Reported Endocrine: No Symptoms Reported Psychiatric: No Symptoms Reported PE - Vital Signs Vitals: Temperature 99.3 F Pulse Rate 123 Respiratory Rate 16 Blood Pressure [Right Arm] 106/65 Blood Pressure 119/79 O2 Sat by Pulse Oximetry 95 - General Limitations: No Limitations General Appearance: Alert, In No Apparent Distress - Head Head Exam: Normal Inspection, Atraumatic, Normocephalic - Eyes Eye exam: Normal Appearance, PERRL, EOMI. negative: Scleral Icterus, Conjunctival Injection, Nystagmus, Miosis, Mydrasis, Periorbital Swelling, Periorbital Tenderness, Other - ENT ENT Exam: Normal Exam, Normal Oropharynx, Normal External Ear Exam, Mucous Membranes Moist, TM's Normal Bilaterally External Ear Exam: Normal External Inspection TM/Canal Exam: Bilateral Normal Nose Exam: Normal Nose Exam Mouth Exam: Normal Inspection Throat Exam: Normal Inspection. negative: Tonsillar Erythema, Tonsillomegaly, Tonsillar Exudate, R Peritonsillar Mass, L Peritonsillar Mass, Muffled Voice, Other - Neck Neck Exam: Normal Inspection, Full ROM, Trachea Midline. negative: Tenderness, Meningismus, Lymphadenopathy, Thyromegaly, Other - Chest Chest Inspection: Normal Inspection, Symmetric Chest Wall Rise. negative: Tenderness, Rash, Abscess, Other - Respiratory Respiratory Exam: Normal Lung Sounds Bilat Respiratory Exam: Bilateral Clear to Auscultation - Cardiovascular Cardiovascular Exam: Regular Rate, Normal Rhythm, Normal Heart Sounds - Abdominal Exam Abdominal Exam: Normal Inspection, Normal Bowel Sounds, Soft, Distention, Tenderness (suprapubic tenderness), Hyperactive Bowel Sounds Abdominal Tenderness: Suprapubic, Mild - Extremities Extremities Exam: Normal Inspection, Full ROM, Normal Capillary Refill. negative: Tenderness, Edema, Joint Swelling, Calf Tenderness, Other - Back Back Exam: Normal Inspection, Full ROM. negative: Tenderness, (R) CVA Tenderness, (L) CVA Tenderness, Muscle Spasm, Paraspinal Tenderness, Vertebral Tenderness, Rashes, (R) Sciatic Notch Tenderness, (L) Sciatic Notch Tendern, (R ) Straight Leg Raise, (L) Straight Leg Raise, Other - Neurologic Neurological Exam: Alert, Oriented X3, CN II-XII Intact, Normal Gait, Reflexes Normal - Psychiatric Psychiatric Exam: Normal Affect, Normal Mood - Skin Skin Exam: Warm, Dry, Intact, Normal Color ROR - Labs Reviewed Laboratory Results Reviewed?: Yes (all lab results reviewed and discussed with patient.) Laboratory: Specimen Type Clean catch urine 10/15/17 21:06 Urine Color Ning (YELLOW) 10/15/17 21:06 Urine Appearance Slightly hazy (CLEAR) 10/15/17 21:06 Urine pH 5.0 (5.0 - 8.0) 10/15/17 21:06 Ur Specific [place] 1.020 (1.000-1.030) 10/15/17 21:06 Urine Protein 1+ (NEGATIVE) 10/15/17 21:06 Urine Glucose (UA) Negative (NEGATIVE) 10/15/17 21:06 Urine Ketones Negative (NEGATIVE) 10/15/17 21:06 Urine Occult Blood 3+ (NEGATIVE) 10/15/17 21:06 Urine Nitrite Positive (NEGATIVE) 10/15/17 21:06 Urine Bilirubin Negative (NEGATIVE) 10/15/17 21:06 Urine Urobilinogen 1+ (NORMAL) 10/15/17 21:06 Ur Leukocyte Esterase 1+ (NEGATIVE) 10/15/17 21:06 Urine RBC Rare /HPF (NEGATIVE) 10/15/17 21:06 Urine WBC 6-12 /HPF (NEGATIVE) 10/15/17 21:06 Ur Squamous Epith Cells Moderate /HPF (NEGATIVE) 10/15/17 21:06 Urine Bacteria 2+ /HPF (NEGATIVE) 10/15/17 21:06 Urine Mucus Moderate /HPF (NEGATIVE) 10/15/17 21:06 Ur Culture Indicated? Yes/culture set up 10/15/17 21:06 Streptococcus Screen Negative (NEGATIVE) 10/15/17 20:54 - Diagnosis Discharge Problem: Constipation UTI (urinary tract infection) Qualifiers: Urinary tract infection type: acute cystitis Hematuria presence: without hematuria Qualified Code(s): N30.00 - Acute cystitis without hematuria Pharyngitis Qualifiers: Pharyngitis/tonsillitis etiology: other specified organisms Qualified Code(s): J02.8 - Acute pharyngitis due to other specified organisms Abdominal pain Qualifiers: Abdominal location: generalized Qualified Code(s): R10.84 - Generalized abdominal pain - Discharge Plan Disposition: HOME, SELF-CARE Condition: Stable Prescriptions: Bisacodyl EC [Dulcolax Tab EC 5 mg] 5 mg PO HS #15 tabec Levofloxacin [LEVAQUIN TAB 500 MG *] 500 mg PO Q24H #10 tab - Follow ups/Referrals Follow ups/Referrals: DONG MIGULE [Primary Care Provider] - 3 days - Instructions Instructions: Urinary Tract Infection, Adult, Abdominal Pain, Adult, Easy-to- Read
[2017-10-15] MEDS ORDERED: PHENERGAN INJ 25 MG IM ONE (21:43)
[2017-10-15] MEDS ORDERED: PHENERGAN INJ 25 MG ONE (21:48)
[2017-10-15] MEDS ORDERED: LEVAQUIN TAB 500 MG PO SCH (22:00)
[2017-10-15] MEDS ORDERED: CHRONULAC PO SCH (22:00)
== END 2017-10-15 20:00 | disposition home or self-care (01) ==
LOC: ER 18:58
DX: N30.00 Acute cystitis without hematuria (principal); K59.09 Other constipation; J02.8 Acute pharyngitis due to other specified organisms; R10.84 Generalized abdominal pain; B96.29 Other Escherichia coli [E. coli] as the cause of diseases classified elsewhere
CPT/HCPCS: 81001; 87070; 87086; 87088; 87186; 87502; 87880; 96372; 99282; 99283; J2550